=== PATIENT | female | born 1990 | race Two or more races ===

== ENCOUNTER 2020-02-15 13:56 | Inpatient (IN) | payer BC, OTHER ==
[~2020-02-15] VITALS: Ht 165.1 cm; Wt 55.1 kg
[2020-02-15 15:13] LABS: Basophils # (auto) 0 10 ^3/uL (0-0.2); Basophils % (auto) 0.1 % (0.0-2.0); Eosinophils # (auto) 0 10 ^3/uL (0-0.8); Hematocrit 41.5 % (36.0-46.0); Hemoglobin 14.9 g/dL (12.2-16.2); Lymphocytes # (auto) 1.6 10 ^3/uL (0.4-5.4); Lymphocytes % (auto) 9.1 % (10.0-50.0); Mean Corpuscular Hemoglobin 29.8 pg (28.0-32.0); Mean Corpuscular Hgb Conc. 35.8 g/dL (32.0-36.0); Mean Corpuscular Volume 83.1 fL (80.0-100.0); Monocytes # (auto) 1.2 10 ^3/uL (0-1.3); Monocytes % (auto) 6.6 % (0.0-12.0); Neutrophils # (auto) 15.1 10 ^3/uL (1.6-8.6); Neutrophils % (auto) 84.2 % (37.0-80.0); Nucleated Red Blood Cells % 0.4 %; Platelet Count (auto) 225 10^3/uL (140-450); Red Cell Distribution Width 13.6 % (11.8-14.3); White Blood Cell 17.9 10^3/uL (4.4-10.8)
[2020-02-15 15:24] LABS: Albumin 3.2 g/dL (3.4-5.0); Calcium 8.7 mg/dL (8.5-10.1); Potassium 3.3 mmol/L (3.5-5.1)
[2020-02-15 15:28] LABS: BUN/Creatinine Ratio 11.4; Bilirubin, Total 1.7 mg/dL (0.2-1.0); Total Protein 7.8 g/dL (6.4-8.2)
[2020-02-15] MEDS ORDERED: cefTRIAXone 1GM/50ML D5W 50 ML IV ONE (17:45)
[2020-02-15] MEDS ORDERED: ALBUTEROL SULF 2.5 MG/0.5ML(0.5%) NEB SOLN NEB ONE ×2 (17:45→20:00)
[2020-02-15] MEDS ORDERED: SODIUM CHLORIDE 0.9% 1,000 ML IV ONE ×2 (17:45→19:45)
[2020-02-15] MEDS ORDERED: AZITHROMYCIN 500MG/ 250ML 250 ML IV ONE (17:45)
[2020-02-15] MEDS ORDERED: IPRATROPIUM BROM 0.5 MG/2.5ML INH SOL NEB ONE ×2 (17:45→20:00)
[2020-02-15] MEDS ORDERED: IPRATROPIUM BROM 0.5 MG/2.5ML INH SOL ONE (18:07)
[2020-02-15] MEDS ORDERED: ALBUTEROL SULF 2.5 MG/0.5ML(0.5%) NEB SOLN ONE (18:07)
[2020-02-15 18:15] LABS: Urine Bacteria FEW /hpf (None Seen); Urine Blood Negative /uL (Negative); Urine Mucus MODERATE (None Seen); Urine Specific Gravity 1.018 (1.001-1.035); Urine WBC 2 /hpf (0 - 5)
[2020-02-15] MEDS ORDERED: PROMETHAZINE W/CODEINE 5 ML ORAL SYRUP PO ONE (18:45)
[2020-02-15 19:05] LABS: Lactic Acid w/Reflex 3.4 mmol/L (0.4-2.0)
[2020-02-15] MEDS ORDERED: methylPREDNISolone SOD SUCC 125 MG/2 ML VL IV ONE (20:00)
[2020-02-15] MEDS ORDERED: ALBUTEROL SULF 2.5 MG/0.5ML(0.5%) NEB SOLN NEB PRN (20:30)
[2020-02-15] MEDS ORDERED: TEMAZEPAM 15 MG CAP PO PRN (20:30)
[2020-02-15] MEDS ORDERED: ONDANSETRON HCL 4 MG/2 ML VIAL IV PRN (20:30)
[2020-02-15] MEDS ORDERED: POTASSIUM CHL 20 Meq TABLET PO ONE (20:30)
[2020-02-15] MEDS ORDERED: ACETAMINOPHEN 325 MG TAB PO PRN (20:30)
[2020-02-15] MEDS ORDERED: NITROGLYCERIN 0.4 MG SL TAB SL PRN (21:30)
[2020-02-15] MEDS ORDERED: MORPHINE SULF INJ 2 MG/ML SYRINGE 1ML IV PRN (21:30)
[2020-02-15] MEDS: FAMOTIDINE 20 MG TAB PO SCH (22:39)
[2020-02-15] MEDS: PROMETHAZINE-DM 5 ML ORAL SYRUP PO PRN (22:40)
[2020-02-15 22:55] VITALS: BP 106/58
--- NOTE | 2020-02-15 22:55 | NUR ---
Telemetry admit from ER Patient admitted to Telemetry unit after SBAR received. Patient oriented to primary RN, unit, room, bed, and unit policies regarding patient care and visiting hours. Patient now on continuous telemetry monitoring, tele box # [id number] and telemetry reading on arrival is HR 116 bpm, patient has a cough with intermittent SOB, no complaints of pain, patient O2 saturation is 99% on room air. bed is low, locked, with two side rails raised, and call hardy within reach. Patient weighed by bed scale and encouraged to call if they need something. All questions and concerns addressed, patient verbalized understanding.
[2020-02-15 23:55] VITALS: BP 106/58
--- NOTE | 2020-02-16 00:05 | NUR ---
IV Inserted. Patient complains of burning and pain in her right AC IV. New 22 gauge IV inserted in left hand. Patient tolerated well, Normal saline connected to new IV and currently infusing.
[2020-02-16] MEDS: SODIUM CHLORIDE 0.9% 1,000 ML IV SCH ×4 (00:59→21:49)
--- NOTE | 2020-02-16 01:05 | NUR ---
PATIENT IS SOB WITH CONTINUOUS COUGHING, NO PRN'S FOR COUGH ARE DUE AT THIS TIME, PATIENT REQUESTS BREATHING TREATMENT, RESPIRATORY PAGED. WILL CONTINUE TO MONITOR.
[2020-02-16] MEDS: PROMETHAZINE-DM 5 ML ORAL SYRUP PO PRN ×2 (02:58→10:39)
[2020-02-16 03:24] VITALS: BP 106/58
[2020-02-16 05:00] VITALS: BP 105/59
[2020-02-16] MEDS ORDERED: INFLUENZA QUAD 2019-2020 0.5ml SYRG IM ONE (05:45)
[2020-02-16 07:11] LABS: Potassium 3.8 mmol/L (3.5-5.1)
[2020-02-16 07:15] LABS: Basophils # (auto) 0 10 ^3/uL (0-0.2); Eosinophils # (auto) 0 10 ^3/uL (0-0.8); Lymphocytes # (auto) 0.7 10 ^3/uL (0.4-5.4); Nucleated Red Blood Cells % 0.1 %; Red Blood Cells 4.32 10^6/uL (4.0-5.20); White Blood Cell 9.7 10^3/uL (4.4-10.8)
[2020-02-16 07:16] LABS: Hematocrit 35.3 % (36.0-46.0); Lymphocytes % (auto) 6.9 % (10.0-50.0); Mean Corpuscular Hemoglobin 30.1 pg (28.0-32.0); Mean Corpuscular Hgb Conc. 36.9 g/dL (32.0-36.0); Mean Corpuscular Volume 81.7 fL (80.0-100.0); Monocytes # (auto) 0.2 10 ^3/uL (0-1.3); Monocytes % (auto) 1.8 % (0.0-12.0); Neutrophils # (auto) 8.8 10 ^3/uL (1.6-8.6); Neutrophils % (auto) 91.3 % (37.0-80.0); Platelet Count (auto) 211 10^3/uL (140-450); Red Cell Distribution Width 13.5 % (11.8-14.3)
[2020-02-16 07:20] LABS: Albumin 2.6 g/dL (3.4-5.0); Bilirubin, Total 0.7 mg/dL (0.2-1.0); Calcium 8.5 mg/dL (8.5-10.1)
--- NOTE | 2020-02-16 07:30 | NUR ---
Opening Shift Note Assumed care of patient, awake and alert. No S/S of distress/SOB. Pt denies having any pain at this time. Bed in lowest and locked position with side rails up x2 and call light within reach. Instructed on POC and to call for assist PRN, will continue to monitor for changes Q1hr and PRN.
[2020-02-16 09:00] VITALS: BP_SYST 121; BP_SYST 94; BP_DIAS 50; BP_DIAS 77
[2020-02-16] MEDS: cefTRIAXone 1GM/50ML D5W 50 ML IV SCH (09:09)
[2020-02-16] MEDS: AZITHROMYCIN 500MG/ 250ML 250 ML IV SCH (10:39)
[2020-02-16] MEDS: FAMOTIDINE 20 MG TAB PO SCH ×2 (10:40→22:30)
--- NOTE | 2020-02-16 11:00 | NUR ---
SPOKE TO DR. Nevaeh MCCRARY. NEW ORDERS RECEIVED, READ BACK AND VERIFIED. SEE EMR FOR ORDERS.
[2020-02-16 13:00] VITALS: BP 98/60
--- NOTE | 2020-02-16 15:00 | NUR ---
ASSESSED PT FOR PRN MED NEB, PT ON RA WITH NO RESPIRATORY DISTRESS NOTED. SPO2 98%. PT SAYS SHE IS ONLY COUGHING AND WILL CALL FOR NEB TX IF NEEDED. WILL CONTINUE TO MONITOR PT.
--- NOTE | 2020-02-16 16:40 | NUR ---
ss consult Per ss consult needs PCP. Gabbi Jordan to see patient for PCP. Addendum: 02/16/20 at 1640 by Gabbi TORRES Amended: Links added.
[2020-02-16 17:00] VITALS: BP 95/57
--- NOTE | 2020-02-16 18:00 | NUR ---
PATIENT TRANSPORTED TO ROOM 294B WITH ALL PERSONAL BELONGINGS. NO DISTRESS NOTED AT THIS TIME.
--- NOTE | 2020-02-16 19:14 | NUR ---
Respiratory note: ASSESSMENT FOR PRN MED NEB TX. HR 110, SPO2 98% ON ROOM AIR, RR 18, BS DIMINISHED. PT PRESENTING NO RESPIRATORY DISTRESS AT THIS TIME. MED NEB TX NOT INDICATED. PT AWARE OF PRN MED NEB TXS AND TO HAVE RT PAGED IF NEEDED. WILL CONTINUE TO MONITOR.
[2020-02-16 22:00] VITALS: BP 104/52
[2020-02-17 01:00] VITALS: BP 107/56
[2020-02-17] MEDS: PROMETHAZINE-DM 5 ML ORAL SYRUP PO PRN ×2 (04:11→09:34)
[2020-02-17] MEDS: SODIUM CHLORIDE 0.9% 1,000 ML IV SCH ×3 (04:11→17:40)
[2020-02-17 05:00] VITALS: BP 99/46
[2020-02-17 06:12] LABS: Basophils # (auto) 0 10 ^3/uL (0-0.2); Basophils % (auto) 0.4 % (0.0-2.0); Eosinophils # (auto) 0 10 ^3/uL (0-0.8); Eosinophils % (auto) 0.2 % (0.0-7.0); Hematocrit 32.2 % (36.0-46.0); Hemoglobin 11.5 g/dL (12.2-16.2); Lymphocytes # (auto) 2.6 10 ^3/uL (0.4-5.4); Lymphocytes % (auto) 22.3 % (10.0-50.0); Mean Corpuscular Hemoglobin 30.1 pg (28.0-32.0); Mean Corpuscular Hgb Conc. 35.8 g/dL (32.0-36.0); Mean Corpuscular Volume 84.1 fL (80.0-100.0); Monocytes % (auto) 8.1 % (0.0-12.0); Neutrophils # (auto) 8.1 10 ^3/uL (1.6-8.6); Nucleated Red Blood Cells % 0.1 %; Platelet Count (auto) 184 10^3/uL (140-450); Red Blood Cells 3.83 10^6/uL (4.0-5.20); White Blood Cell 11.7 10^3/uL (4.4-10.8)
--- NOTE | 2020-02-17 08:00 | NUR ---
Morning note Patient resting in bed with even and unlabored respirations on room air, no distress noted. Instructed patient on POC, fall precautions and to call for assistance as needed. Patient verbalized understanding. Fall precautions in place with call light within reach.
[2020-02-17] MEDS ORDERED: SODIUM CHLORIDE 0.9 % NEB SOLN 3ML NEB ONE (09:16)
[2020-02-17] MEDS: FAMOTIDINE 20 MG TAB PO SCH ×2 (09:33→22:32)
[2020-02-17 09:34] VITALS: BP 106/63
[2020-02-17] MEDS: cefTRIAXone 1GM/50ML D5W 50 ML IV SCH (09:36)
--- NOTE | 2020-02-17 11:01 | NUR ---
was at bedside - Dr. Nevaeh Little Orders received and read back to verify.
--- NOTE | 2020-02-17 11:07 | NUR ---
RE: Influenza vaccination Vaccination to be held per Dr. Nevaeh Little order. Medication non-administered on eMAR.
[2020-02-17] MEDS ORDERED: SODIUM CHLORIDE 0.9% 1,000 ML IV ONE (11:15)
[2020-02-17] MEDS: AZITHROMYCIN 500MG/ 250ML 250 ML IV SCH (11:31)
[2020-02-17] MEDS: guaiFENesin-DM 100/10mg/5ml SYR PO PRN ×2 (12:41→18:20)
[2020-02-17 14:20] VITALS: BP 110/56
--- NOTE | 2020-02-17 14:54 | NUR ---
Patient resting in bed with even and unlabored respirations on room air, no distress noted. Call light within reach.
[2020-02-17 16:27] VITALS: BP 102/91
--- NOTE | 2020-02-17 18:47 | NUR ---
Closing note patient sitting in chair at bedside, respirations even and unlabored on room air, no distress noted. Call light within reach.
--- NOTE | 2020-02-17 19:14 | NUR ---
Care endorsed to Marita Rose RN.
--- NOTE | 2020-02-17 19:14 | NUR ---
Respiratory note: ASSESSMENT FOR PRN MED NEB TX. HR 83, SPO2 97% ON ROOM AIR, RR 16, BS DIMINISHED/CLEAR. MED NEB TX NOT INDICATED AT THIS TIME, NO RESPIRATORY DISTRESS NOTED. PT AWARE OF PRN MED NEB TXS AND TO HAVE RT PAGED IF NEEDED. WILL CONTINUE TO MONITOR ORDERED.
[2020-02-18 00:42] VITALS: BP 105/66
[2020-02-18 05:26] VITALS: BP 113/74
[2020-02-18] MEDS: SODIUM CHLORIDE 0.9% 1,000 ML IV SCH ×3 (06:00→13:40)
--- NOTE | 2020-02-18 07:30 | NUR ---
Morning note Patient resting in bed with even and unlabored respirations on room air; eyes closed, no distress noted. Fall precautions in place with call light within reach.
[2020-02-18 08:39] VITALS: BP 92/61
[2020-02-18] MEDS: cefTRIAXone 1GM/50ML D5W 50 ML IV SCH (08:43)
[2020-02-18] MEDS: FAMOTIDINE 20 MG TAB PO SCH (08:43)
[2020-02-18] MEDS: guaiFENesin-DM 100/10mg/5ml SYR PO PRN (08:52)
--- NOTE | 2020-02-18 09:28 | NUR ---
Respiratory note: ASSESSMENT FOR PRN MED NEB TX. HR 101, SPO2 97% ON ROOM AIR, RR 16, BS DIMINISHED/CLEAR. MED NEB TX NOT INDICATED AT THIS TIME, NO RESPIRATORY DISTRESS NOTED. PT AWARE OF PRN MED NEB TXS AND TO HAVE RT PAGED IF NEEDED. WILL CONTINUE TO MONITOR ORDERED.
[2020-02-18] MEDS: AZITHROMYCIN 500MG/ 250ML 250 ML IV SCH (10:30)
--- NOTE | 2020-02-18 11:45 | NUR ---
RE: IV Zithromax Patient notified this RN that IV site is tender and painful. IV site assessed. Mild redness noted at IV site. IV zithromax stopped. IV to be discontinued.
--- NOTE | 2020-02-18 12:14 | NUR ---
MD was at bedside - Dr. Nevaeh Little This RN was at bedside. Patient okay for discharge. Notified MD that patient did not receive full dose of Zithromax. MD verbalized understanding.
[2020-02-18 13:00] VITALS: BP 100/62
--- NOTE | 2020-02-18 15:02 | NUR ---
Discharge Discharge education and paperwork provided to the patient per MD order. Patient verbalized understanding. Patient provided with Gabbi Banegas, [employer] instructor, information for assistance with locating a PCP. IV removed with clean technique, catheter intact. Dressing applied. Patient tolerated well, no trauma to site. Telemonitor removed and returned. Patient reports having all personal belongings. Respirations even and unlabored on room air, no distress noted. Patient contacted her transportation to transport her home.
--- NOTE | 2020-02-18 15:32 | NUR ---
Patient's transportation arrived Patient refused wheelchair. Patient ambulated with a steady gait to hospital lobby accompanied by staff member. Respirations even and unlabored on room air, no distress noted. Patient reports having all personal belongings.
== END 2020-02-18 15:25 | disposition home or self-care (01) | DRG 871 ==
LOC: ER 13:56 → EDBD 13:56 → TELE 13:57 → TELE-WESTW 22:15
PROVIDERS: ADMIT Nurse Practitioner; ATTEND Family Medicine
DX: A41.9 Sepsis, unspecified organism (principal); J18.9 Pneumonia, unspecified organism; N39.0 Urinary tract infection, site not specified; E86.0 Dehydration
CPT/HCPCS: 36415; 71046; 80053; 81001; 83605; 85025; 87040; 87804; 94640; G0378; J0696